=== PATIENT | male | born 1975 | race Caucasian/White ===

== ENCOUNTER 2017-05-09 06:29 | Day surgery (SDC) | payer BC ==
[2017-05-09] MEDS ORDERED: CEFAZOLIN 1 GM INJ (07:00)
[2017-05-09] MEDS ORDERED: PROPOFOL 200 MG INJ (07:00)
[2017-05-09] MEDS ORDERED: PROPOFOL 20 ML (07:50)
[2017-05-09] MEDS ORDERED: LIDOCAINE 2% (SDV) 5 ML INJ (07:50)
[2017-05-09] MEDS ORDERED: MIDAZOLAM 1 MG/ML 2 ML INJ (07:51)
[2017-05-09] MEDS ORDERED: FENTAnyl 50 MCG/ML VIAL (07:51)
[2017-05-09] MEDS ORDERED: KETOROLAC 30 MG INJ (08:12)
[2017-05-09] MEDS ORDERED: ONDANSETRON 4 MG INJ (08:12)
[2017-05-09] MEDS ORDERED: DEXAMETHASONE 4 MG/ML 1 ML INJ (08:12)
[2017-05-09] MEDS ORDERED: BUPIVACAINE 0.25% (MPF) 30 ML INJ (08:26)
[2017-05-09] MEDS ORDERED: BUPIVACAINE 0.5% (SDV) 30 ML INJ (08:27)
[2017-05-09] MEDS ORDERED: morphine (1 MG/ML) 10ML SYRINGE IV (09:00)
[2017-05-09] MEDS ORDERED: CEFAZOLIN 2 GM/50 ML (PMX) 50 ML IVPB (09:00)
[2017-05-09] MEDS ORDERED: FENTAnyl 50 MCG/ML VIAL IV (09:00)
[2017-05-09] MEDS ORDERED: ONDANSETRON 4 MG INJ IV (09:00)
[2017-05-09] MEDS ORDERED: MEPERIDINE 25 MG INJ IV (09:00)
[2017-05-09] MEDS ORDERED: HYDROmorphONE (0.2 MG/ML) 10ML SYG IV ×2 (09:00)
[2017-05-09] MEDS ORDERED: LABETALOL HCL 20MG INJ IV (09:00)
== END 2017-05-14 10:55 | disposition home or self-care (01) ==
LOC: SDS 06:29
DX: D75.81 Myelofibrosis (principal); M89.9 Disorder of bone, unspecified
CPT/HCPCS: 20240; 88307